=== PATIENT | male | born 1965 | race Two or more races ===

== ENCOUNTER 2024-03-12 15:35 | Emergency (ER) | payer OTHER ==
[~2024-03-12] VITALS: Ht 175.3 cm; Wt 75.0 kg
[2024-03-12 15:41] VITALS: TEMP 98.7
[2024-03-12] MEDS ORDERED: UNKNOWN BP MED PO (15:41)
[2024-03-12] MEDS: IBUPROFEN 600 MG TABLET PO ONE (18:34)
[2024-03-12 19:19] VITALS: BP 131/91; PULSE 84; RESP 18; O2SAT 99
[2024-03-12] MEDS ORDERED: IBUP-1492 PO (21:08)
[2024-03-12] MEDS ORDERED: METH-812 PO (21:08)
== END 2024-03-12 21:29 | disposition home or self-care (01) ==
LOC: EMS 15:35
DX: S13.4XXA Sprain of ligaments of cervical spine, initial encounter (principal); M25.511 Pain in right shoulder; I10 Essential (primary) hypertension; F17.210 Nicotine dependence, cigarettes, uncomplicated; V43.62XA Car passenger injured in collision with other type car in traffic accident, initial encounter; Y93.89 Activity, other specified; Y92.410 Unspecified street and highway as the place of occurrence of the external cause; Y99.0 Civilian activity done for income or pay
CPT/HCPCS: 72125; 99284; 73030-TC; Z7502; Z7610